=== PATIENT | female | born 1980 | race Caucasian/White ===

== ENCOUNTER 2019-10-22 12:07 | Emergency (ER) | payer SELFPAY ==
[2019-10-22 12:10] VITALS: BP 112/66; PULSE 69; RESP 15; TEMP 36.9; O2SAT 98; BMI 25.3
--- NOTE | 2019-10-22 12:30 | ED.VISSUMM ---
- ER Visit Summary Date of Service: 10/22/19 Chief Complaint: Rash History of Present Illness: The patient is a 39 F who presents with a rash that began yesterday. Patient was recently started on clindamycin for a dental infection 3 to 4 days ago. Patient believes that the rash is due to the clindamycin. Patient denies any difficulty breathing or difficulty swallowing. Patient states the rash is pruritic. Patient states the rash is over the face, neck, chest, and bilateral shoulders. Patient denies any history of allergy to clindamycin in the past. Physical Examination: Vital signs are stable. Patient is afebrile. Patient is in no acute distress. Oral mucosa is pink and moist. Oropharynx is clear. Airway is patent. There is a dental carry noted over the left lower first molar. There is no gingival edema. There is no sublingual edema or erythema. Neck is supple. Trachea is midline. There is no JVD. There is some mild anterior cervical lymphadenopathy. Heart was regular rate and rhythm. Lungs are clear and equal bilaterally. Skin is warm and dry. There is a patchy erythematous papular rash over the face, neck, chest, upper back, and shoulders. There are no vesicles or pustules. There are no petechia noted. There are no mucosal lesions. Emergency Department Course and Treatment: Patient was instructed to stop the clindamycin. I do not feel the patient needs to be on oral prednisone at this time. Patient was instructed to take Benadryl as needed for any itching. Patient was instructed to follow-up with her dentist and primary care physician in 5 to 7 days. Patient understood and was agreeable with the plan. All questions were answered. Disposition: Discharge home Impression: Dermatitis This note was generated with [employer] dictation software. It may contain incorrect words, spelling, and punctuation that were not noted in review of the chart prior to signing ED Disposition - Plan for ED Patient: Disposition: Home or Assisted Living Diagnosis: Dermatitis Instructions: ALLERGIC REACTION, Other (General) Referrals: [facility] Doctor,Out of [Primary Care Provider] - 5-7 Days
[2019-10-22 12:51] VITALS: PULSE 61; RESP 17; O2SAT 97
== END 2019-10-22 12:51 | disposition home or self-care (01) ==
LOC: ED 12:47
PROVIDERS: Emergency Provider Emergency Medicine; PCP Family Medicine
DX: L30.9 Dermatitis, unspecified (principal); F17.210 Nicotine dependence, cigarettes, uncomplicated
CPT/HCPCS: 99282

== ENCOUNTER → 2020-09-06 07:58 | Outpatient (CLI) | payer MEDICAID, SELFPAY ==
--- NOTE | 2020-09-06 08:03 | US_ITS ---
STUDY: ABDOMINAL ULTRASOUND REASON FOR EXAM: Female, 40 years old. ABD PAIN TECHNIQUE: Transabdominal ultrasound was performed with real-time and static valladares scale imaging. TECHNICAL QUALITY: Adequate. COMPARISON: None. FINDINGS: Liver: The liver measures 18 cm. There is increased echogenicity of the liver. The bile ducts are within normal limits. There is hepatic color flow. The direction of portal flow is hepatopetal. There is no demonstrated mass lesion Gallbladder: Normal distended gallbladder. The gallbladder wall measures 2.0 mm. There is a negative sonographic Michaud''s sign. There is no pericholecystic fluid. There are no gallstones. Common Bile Duct (C.B.D.): The common bile duct measures 2.9 mm. Pancreas: There is no demonstrated pancreatic mass or cyst. Spleen: Normal size of the spleen. The spleen measures 10.0 cm. Right Kidney: Normal size of the right kidney. The right kidney measures 11.4 x 4.9 x 3.5 cm. Normal renal cortex. The right cortex measures 1.2 cm. There is no demonstrated renal mass or cyst. There is no right hydronephrosis. Left Kidney: Normal size of the left kidney. The left kidney measures 11.4 x 5.4 x 5.4 cm. Normal renal cortex. The left cortex measures 1.4 cm. There is no demonstrated renal mass or cyst. There is no left hydronephrosis. Shadowing calculi of the left kidney measured up to 10-12 mm. Aorta: Nonaneurysmal I.V.C.: The IVC is patent. There is no ascites. US/Abdomen Complete IMPRESSION: 1. Hepatomegaly with increased echogenicity, which is nonspecific but most commonly associated with hepatic steatosis. 2. Nonobstructing left renal calculi. Electronically Signed: Tyler Serra MD (Brooks) at 12:21 EST , Service support ,
== END ==
PROVIDERS: PCP Family Medicine; Referring Provider Family Medicine; Visit Provider Family Medicine
DX: R10.11 Right upper quadrant pain (principal)
CPT/HCPCS: 76700

== ENCOUNTER 2020-09-15 07:12 | Emergency (ER) | payer MEDICAID, SELFPAY ==
[2020-09-15 07:13] VITALS: BP 108/83; PULSE 67; RESP 16; TEMP 36.2; O2SAT 99; BMI 28.3
--- NOTE | 2020-09-15 07:28 | CT_ITS ---
STUDY: CT ABDOMEN AND PELVIS WITH CONTRAST REASON FOR EXAM: Female, 40 years old. Left abdomen and flank pain, known left stone. Prior x 3. RADIATION DOSAGE (If Supplied By Facility): CTDIvol = ( 16.80 ) mGy, DLP = ( 673.36 ) mGycm TECHNIQUE: Transaxial images were obtained from the dome of the diaphragm to the symphysis pubis with oral contrast. Gastrografin and amp; 100mL Isovue 300 was administered. Sagittal and coronal images were reconstructed. Individualized dose optimization techniques were used for this CT. COMPARISON: None. FINDINGS: Minimal degree of the dependent bibasilar atelectasis. The visualized portions of the heart are within normal limits. Normal liver. Normal gallbladder and extrahepatic biliary system. Normal spleen. Normal pancreas. Normal bilateral adrenal glands. Normal right kidney. A staghorn calculus is seen in the left upper pole calyceal system . The largest component measures 1.5 cm x 0.8 cm. There is evidence of a 1.5 cm x 1.9 cm cyst in the posterior aspect of the upper pole of the left kidney containing a calcification within. There is a small hiatal hernia. Normal small intestine. There are multiple colonic diverticula consistent with diverticulosis. The appendix is visualized and appears normal. Normal abdominal aorta. Normal inferior vena cava. Normal retroperitoneum. Normal urinary bladder. Follicles are seen in the right ovary. Normal abdominal wall. Disc space narrowing in the degeneration at the L5-S1 level. CT/Abdomen/Pelvis WITH Contrast IMPRESSION: Staghorn calculus in the upper pole calyceal system of the left kidney with a small left renal cyst. Sigmoid diverticulosis. Electronically Signed: Fidel Merlos, at 9:34 EST , Service support ,
--- NOTE | 2020-09-15 07:29 | ED.VIS.GEN ---
History of Present Illness Chief Complaint: Abd Pain Informant: Patient Onset: Weeks Context: Gradual Onset Timing: Waxes and wanes Current Severity: Moderate Maximum Severity: Moderate Narrative: Patient presents secondary to left-sided abdominal pain. She reports having left flank pain for the last 2 weeks. She has been taking Aleve and Zofran on a regular basis. Her PCP did get an ultrasound on September 06 which showed hepatic steatosis and a nonobstructing left renal calculi. She states that she is scheduled to get blood work done tomorrow. She presents to the ER today due to continued and worsening pain. No fevers or chills. Nausea but no vomiting. She reports either having diarrhea or constipation. No urinary symptoms. Past Medical History - Allergies and Home Meds Allergies/Adverse Reactions: Allergies clindamycin Allergy (Verified 09/15/20 07:13) Hives morphine Allergy (Verified 09/15/20 07:13) Anaphylaxis Penicillins [PCN] Allergy (Verified 09/15/20 07:13) Anaphylaxis adhesive Adverse Reaction (Verified 09/15/20 07:13) Rash Primary Care Physician: Piyush Robison MD [Primary Care Provider] - Past Medical History: None Surgical History: - - Tubal ligation, left foot surgery Lives: With Family Smoking Status: Current every day smoker Review of Systems General: Denies: Chills, Fever Eyes: Denies: Visual changes - bilaterally ENT: Denies: Bilateral ear pain Cardiovascular: Denies: Chest pain Respiratory: Denies: Dyspnea, Cough Gastrointestinal: Reports: Abdominal pain, Nausea, Diarrhea, Constipation. Denies: Vomiting Genitourinary: Denies: Dysuria Musculoskeletal: Reports: Back pain - Flank. Denies: Extremity Pain Neurological: Denies: Headache Hematologic: Denies: Easy bruising, Easy bleeding Allergy: Denies: Uticaria Physical Exam Vital Signs/Narrative: Vital Signs Temp Pulse Resp BP Pulse Ox 09/15/20 07:13 97.2 F L 67 16 108/83 H 99 Inital Vital Signs reviewed: Yes General: Well nourished, Well developed Head: Normocephalic ENT: Moist mucous membranes Neck: Supple Cardiovascular: Regular rate, Regular rhythm Respiratory: No distress, CTA bilaterally Abdomen: Soft, Nontender, Hypoactive bowel sounds Extremities: Nontender Skin: Normal color Neurological: Alert, Oriented x3 Psychological: Normal affect Diagnostic/Tx/Re-eval Impressions Abdomen/Pelvis CT 09/15/20 07:28 IMPRESSION: Staghorn calculus in the upper pole calyceal system of the left kidney with a small left renal cyst. Sigmoid diverticulosis. Electronically Signed: Fidel Merlso, at 9:34 EST , Service support , 09/15/20 07:28 Abdomen/Pelvis WITH Contrast [CT] Stat Laboratory Results 09/15/20 09/15/20 09/15/20 07:25 07:45 07:45 WBC 6.9 RBC 4.31 Hgb 11.3 L Hct 36.1 L MCV 83.8 MCH 26.2 L MCHC 31.3 L RDW Std Deviation 44.0 H RDW Coeff of Jhonatan 14.3 Plt Count 357 MPV 9.6 Immature Gran % (Auto) 0.100 Neut % (Auto) 58.8 Lymph % (Auto) 28.0 [place] % (Auto) 7.5 Eos % (Auto) 4.9 Baso % (Auto) 0.7 Absolute Neuts (auto) 4.1 Absolute Lymphs (auto) 1.94 Nucleated RBC % 0 Sodium 141 Potassium 4.0 Chloride 112 H Carbon Dioxide 25.0 Anion Gap 4 L BUN 11 Creatinine 0.80 Estim Creat Clear Calc 75.41 Est GFR (MDRD) Af Amer 103 Est GFR (MDRD) Non-Af 85 BUN/Creatinine Ratio 13.7 Glucose 95 Calcium 8.7 Total Bilirubin 0.30 Direct Bilirubin 0.07 AST 12 L ALT 26 Alkaline Phosphatase 58 Total Protein 7.2 Albumin 3.4 Globulin 3.8 Lipase 132 Serum , Qual Urine Color Yellow Urine Clarity Sl. Cloudy Urine pH 7.0 Ur Specific [place] 1.005 Urine Protein Negative Urine Glucose (UA) Normal Urine Ketones Negative Urine Occult Blood 25 H Urine Nitrite Negative Urine Bilirubin Negative Urine Urobilinogen Normal Ur Leukocyte Esterase 25 H Urine RBC 0 SEEN Urine WBC 0-5 SEEN Ur Squamous Epith Cells 5-10 SEEN Urine Bacteria 1+ Urine Mucus 0 SEEN 09/15/20 07:45 WBC RBC Hgb Hct MCV MCH MCHC RDW Std Deviation RDW Coeff of Jhonatan Plt Count MPV Immature Gran % (Auto) Neut % (Auto) Lymph % (Auto) [place] % (Auto) Eos % (Auto) Baso % (Auto) Absolute Neuts (auto) Absolute Lymphs (auto) Nucleated RBC % Sodium Potassium Chloride Carbon Dioxide Anion Gap BUN Creatinine Estim Creat Clear Calc Est GFR (MDRD) Af Amer Est GFR (MDRD) Non-Af BUN/Creatinine Ratio Glucose Calcium Total Bilirubin Direct Bilirubin AST ALT Alkaline Phosphatase Total Protein Albumin Globulin Lipase Serum , Qual NEGATIVE Urine Color Urine Clarity Urine pH Ur Specific [place] Urine Protein Urine Glucose (UA) Urine Ketones Urine Occult Blood Urine Nitrite Urine Bilirubin Urine Urobilinogen Ur Leukocyte Esterase Urine RBC Urine WBC Ur Squamous Epith Cells Urine Bacteria Urine Mucus - Medical Decision Making Patient was given Zofran and 1 tab of [place] here for pain. IV fluids were given. Blood work is reviewed with her and unremarkable. Urinalysis shows a few white cells, however more epithelial cells are noted likely representing contamination. CT scan does reveal diverticulosis but no evidence of diverticulitis. There is a staghorn calculus noted in the left kidney. Patient's pain does seem to radiate along the left flank area. I do wonder if she might be passing small pieces of this calculus. In light of her symptoms ongoing for 2 weeks she will be referred to urology for outpatient follow-up as needed. She will continue her current medication regimen at home. ED Disposition - Plan for ED Patient: Disposition: Home or Assisted Living Diagnosis: Left flank pain Instructions: ED Flank Pain, Uncertain Cause Referrals: Piyush Robison MD [Primary Care Provider] - Magdiel Prieto MD [STAFF PHYSICIAN] - As Needed
[2020-09-15 07:42] LABS: Mucous, Urine 0 SEEN /hpf (<or=2+); Red Blood Cells-Urine 0 SEEN /hpf (0-5)
[2020-09-15 07:46] LABS: Color, Urine Yellow (Yellow); Glucose, Dipstick Normal (Normal); Ketone-Dipstick Negative (Negative); Leukocyte Esterase-Dipstick 25 /ul (Negative); Nitrite-Dipstick Negative (Negative); Occult Blood-Urine 25 /ul (Negative); Protein-Dipstick Negative (Negative); Specific Gravity, Urine 1.005 (1.002-1.030); Urine Bilirubin Dipstick Negative (Negative); Urine Clarity Sl. Cloudy (Clear); Urine Urobilinogen Normal (Normal)
[2020-09-15] MEDS: HYDROcodone Bitartrate/Apap 5/325 Tablet PO (07:50)
[2020-09-15] MEDS: Ondansetron 4 MG/2 ML Vial IV (07:50)
[2020-09-15] MEDS: 0.9% Normal Saline 1,000 ML 150 ML IV (07:50)
[2020-09-15 07:52] LABS: Bacteria 1+ /hpf (None Seen); Squamous Epithelial Cells - UA 5-10 SEEN /hpf (5-10); White Blood Cells 0-5 SEEN /hpf (0-5)
[2020-09-15 07:59] LABS: Absolute Lymphocyte Count 1.94 X10^3/uL (0.83-4.51); Absolute Neutrophil Count 4.1 X10^3/uL (2.0-7.7); Basophil# 0.05 X10^3/uL; Basophil% 0.7 % (0-1); Eosinophil# 0.34 X10^3/uL; Eosinophils% 4.9 % (0-5); Hematocrit 36.1 % (37-47); Hemoglobin 11.3 g/dL (12.0-15.0); Lymphocyte # 1.94 X10^3/ul (4.0); Mean Corp Hgb Conc 31.3 g/dL (32-36); Mean Corpuscular Hgb 26.2 pg (27.0-32.0); Mean Corpuscular Volume 83.8 fL (81-99); Mean Platelet Vol. 9.6 fl (6.2-12.0); Monocyte# 0.52 X10^3/uL; Monocyte% 7.5 % (0-10); NRBC Flagged by Analyzer 0 % (0-5); Neutrophil # 4.07 X10^3/uL (2.7-7.7); Neutrophil % 58.8 % (47-70); Platelet Count 357 K/mm3 (150-450); RBC Distribution Width CV 14.3 % (11.6-14.6); Red Blood Count 4.31 M/mm3 (4.2-5.4); White Blood Count 6.9 K/mm3 (4.4-11.0)
[2020-09-15 08:02] LABS: Internal QC Validated? YES +Cl - CLEAR BKGD; Pregnancy, Serum, hCG Quali. NEGATIVE Negative
[2020-09-15 08:17] LABS: AST(SGOT) 12 U/L (15-37); Alanine Aminotransfer ALT/SGPT 26 U/L (13-56); Albumin, Serum 3.4 g/dL (3.2-5.0); Alkaline Phosphatase 58 U/L (45-117); Anion Gap 4 (5-15); BUN 11 mg/dL (7-18); BUN/Creat Ratio 13.7 RATIO (10-20); Bilirubin, Direct 0.07 mg/dL (0.00-0.30); Calcium,Total 8.7 mg/dL (8.5-10.1); Chloride 112 mmol/L (98-107); EST Glomerular Filtration Rate 85 mL/min (>60); Est Glom Filt Rate - Afr Amer 103 mL/min (>60); Estimated Creatinine Clearance 75.41 ml/min; Globulin 3.8 g/dL (2.2-4.2); Glucose 95 mg/dL (74-106); Lipase 132 U/L (73-393); Protein, Total 7.2 g/dL (6.4-8.2); Sodium Level 141 mmol/L (136-145)
[2020-09-15 09:52] VITALS: PULSE 72; RESP 16; O2SAT 98
== END 2020-09-15 09:53 | disposition home or self-care (01) ==
PROVIDERS: Emergency Provider Emergency Medicine; PCP Family Medicine
DX: R10.9 Unspecified abdominal pain (principal); N20.0 Calculus of kidney; K57.30 Diverticulosis of large intestine without perforation or abscess without bleeding; N28.1 Cyst of kidney, acquired; F17.200 Nicotine dependence, unspecified, uncomplicated; Z88.0 Allergy status to penicillin; Z98.891 History of uterine scar from previous surgery; K76.0 Fatty (change of) liver, not elsewhere classified
CPT/HCPCS: 74177; 80048; 80076; 81001; 83690; 84703; 85025; 96361; 96374; 99284; J7030; Q9967; A4216; J2405

== ENCOUNTER 2020-10-19 07:52 | Emergency (ER) | payer MEDICAID, SELFPAY ==
[2020-10-19 07:53] VITALS: BP 158/65; PULSE 64; RESP 16; TEMP 36.4; O2SAT 99; BMI 27.8
--- NOTE | 2020-10-19 08:13 | ED.VIS.GI ---
History of Present Illness Chief Complaint: Flank Pain Informant: Patient - Abdominal Pain/Flank Pain Timing: Continuous Quality: Aching, Sharp Location: Right Flank - Nausea/Vomiting/Emesis GI Symptom: Nausea Associated Symptoms: Dysuria, Frequency Narrative: Patient is a 40-year-old female presenting with right flank pain. She states is been present for the past 4 to 5 days. She states it is constant. Has become more severe in intensity. She denies any radiation. Patient states she is also urinary frequency and burning with urination. She notes her urine little bit more cloudy than normal. Patient was seen about a month ago for left-sided flank pain. At that time she had a CT with IV contrast that showed diverticulosis and left staghorn calculi. Patient has appointment actually to follow-up with urology tomorrow in [place] (with [facility]). Patient reports associated nausea. She denies any vomiting. She denies any abnormal vaginal bleeding or discharge. Her last menstrual period was a little over 3 weeks ago. Patient denies any change in her bowel habits. No fever, chills or any other systemic symptoms. Has been taking Tylenol at home with no relief of the pain. Past Medical History - Allergies and Home Meds Allergies/Adverse Reactions: Allergies clindamycin Allergy (Verified 10/19/20 07:55) Hives morphine Allergy (Verified 10/19/20 07:55) Anaphylaxis Penicillins [PCN] Allergy (Verified 10/19/20 07:55) Anaphylaxis adhesive Adverse Reaction (Verified 10/19/20 07:55) Rash Primary Care Physician: Piyush Robison MD [Primary Care Provider] - Past Medical History: - - GERD, kidney stones, hypertension Surgical History: - - Tubal ligation, left foot surgery Smoking Status: Never smoker Review of Systems General: Denies: Chills, Fever, Sweats Eyes: Denies: Visual changes - bilaterally, Diplopia ENT: Denies: Rhinorrhea, Sore throat Cardiovascular: Denies: Chest pain, Palpitations Respiratory: Denies: Dyspnea, Cough, Dyspnea on exertion Gastrointestinal: Reports: Abdominal pain - Right flank, Nausea. Denies: Vomiting, Diarrhea, Melena, Hematochezia Genitourinary: Reports: Dysuria, Frequency. Denies: Hematuria Musculoskeletal: Denies: Back pain, Extremity Pain Skin: Denies: Rash, Wounds Neurological: Denies: Headache, Weakness, Numbness Physical Exam Vital Signs/Narrative: Vital Signs Temp Pulse Resp BP Pulse Ox 10/19/20 07:53 97.6 F L 64 16 158/65 H 99 Inital Vital Signs reviewed: Yes General: Well nourished, Well developed, No Acute Distress Head: Normocephalic, Atraumatic Eyes: Perrl, EOMI ENT: Moist mucous membranes, No rhinorrhea Neck: Supple, Nontender Cardiovascular: Regular rate, Regular rhythm, No murmurs Respiratory: No distress, CTA bilaterally, Chest nontender Abdomen: Soft, Nondistended, Normal bowel sounds, Tender - Mild suprapubic tenderness to palpation Back: Nontender, Normal Inspection, CVA tenderness - Right flank Extremities: Nontender, No edema Skin: Normal color, No rash Neurological: Alert, Oriented x3, Cranial nerves II-XII grossly intact, Normal Strength, Normal Sensation Psychological: Normal affect, Normal Mood Diagnostic/Tx/Re-eval Laboratory Data 10/19/20 10/19/20 10/19/20 08:00 08:00 08:15 WBC 6.9 RBC 4.63 Hgb 12.0 Hct 37.5 MCV 81.0 MCH 25.9 L MCHC 32.0 RDW Std Deviation 43.1 RDW Coeff of Jhonatan 14.6 Plt Count 358 MPV 10.0 Immature Gran % (Auto) 0.300 Neut % (Auto) 53.7 Lymph % (Auto) 30.6 [place] % (Auto) 7.7 Eos % (Auto) 7.0 H Baso % (Auto) 0.7 Absolute Neuts (auto) 3.7 Absolute Lymphs (auto) 2.10 Nucleated RBC % 0 Sodium 137 Potassium 3.7 Chloride 107 Carbon Dioxide 25.0 Anion Gap 5 BUN 15 Creatinine 0.89 Estim Creat Clear Calc 67.79 Est GFR (MDRD) Af Amer 91 Est GFR (MDRD) Non-Af 75 BUN/Creatinine Ratio 16.8 Glucose 90 Calcium 8.8 Total Bilirubin 0.30 AST 15 ALT 21 Alkaline Phosphatase 54 Total Protein 7.9 Albumin 3.8 Globulin 4.1 Albumin/Globulin Ratio 0.9 Urine Color Urine Clarity Urine pH Ur Specific [place] Urine Protein Urine Glucose (UA) Urine Ketones Urine Occult Blood Urine Nitrite Urine Bilirubin Urine Urobilinogen Ur Leukocyte Esterase Urine RBC Urine WBC Ur Squamous Epith Cells Urine Bacteria Urine Mucus Urine Test Negative 10/19/20 08:15 WBC RBC Hgb Hct MCV MCH MCHC RDW Std Deviation RDW Coeff of Jhonatan Plt Count MPV Immature Gran % (Auto) Neut % (Auto) Lymph % (Auto) [place] % (Auto) Eos % (Auto) Baso % (Auto) Absolute Neuts (auto) Absolute Lymphs (auto) Nucleated RBC % Sodium Potassium Chloride Carbon Dioxide Anion Gap BUN Creatinine Estim Creat Clear Calc Est GFR (MDRD) Af Amer Est GFR (MDRD) Non-Af BUN/Creatinine Ratio Glucose Calcium Total Bilirubin AST ALT Alkaline Phosphatase Total Protein Albumin Globulin Albumin/Globulin Ratio Urine Color Yellow Urine Clarity Sl. Cloudy Urine pH 6.5 Ur Specific [place] 1.010 Urine Protein Negative Urine Glucose (UA) Normal Urine Ketones Negative Urine Occult Blood Negative Urine Nitrite Positive H Urine Bilirubin Negative Urine Urobilinogen Normal Ur Leukocyte Esterase 500 H Urine RBC 0 SEEN Urine WBC 25-50 SEEN Ur Squamous Epith Cells 0-5 SEEN Urine Bacteria 1+ Urine Mucus 0 SEEN Urine Test - Medical Decision Making Patient is evaluated for 4 to 5 days of right-sided flank pain. She also has urinary symptoms. Physical exam shows a mild CVA tenderness but she is otherwise well-appearing. Patient is on her phone this time in the ER. She is given morphine, fluids and Zofran for symptom control in the ER. Urinalysis consistent with UTI. Given her flank pain should be can treated as pyelonephritis. CT from a month ago shows a stone on the left side which is not where her symptoms are today. Her white blood cell counts and creatinine are normal. Patient is also given IV Toradol. She be started on Keflex. She does have a allergy to penicillin but it is rash so I think she will tolerate the Keflex. She has appointment to follow-up with her urologist tomorrow. Urine culture is sent. Patient is counseled on signs and symptoms requiring return to the emergency room. Patient verbalizes agreement and understand this plan. Patient discharged home in stable and improved condition. ED Disposition - Plan for ED Patient: Disposition: Home or Assisted Living Diagnosis: Pyelonephritis Instructions: ED Pyelonephritis, Female (Adult) Prescriptions: Cephalexin [Keflex] 500 mg PO Q12 #14 cap Transmission Status: Pending to [facility] Phenazopyridine HCl [Pyridium] 200 mg PO TID #6 tab [facility]: [facility] Ondansetron [Zofran Odt] 4 mg PO Q8H PRN PRN #10 tab PRN Reason: Nausea [facility] Referrals: Piyush Robison MD [Primary Care Provider] - Additional Instructions: Please follow-up with your urologist tomorrow
[2020-10-19 08:17] LABS: Absolute Neutrophil Count 3.7 X10^3/uL (2.0-7.7); Basophil# 0.05 X10^3/uL; Basophil% 0.7 % (0-1); Eosinophil# 0.48 X10^3/uL; Hematocrit 37.5 % (37-47); Lymphocyte % 30.6 % (19-41); Mean Corpuscular Hgb 25.9 pg (27.0-32.0); Monocyte# 0.53 X10^3/uL; Monocyte% 7.7 % (0-10); NRBC Flagged by Analyzer 0 % (0-5); Neutrophil # 3.69 X10^3/uL (2.7-7.7); Neutrophil % 53.7 % (47-70); Platelet Count 358 K/mm3 (150-450); RBC Distribution Width CV 14.6 % (11.6-14.6); RBC Distribution Width SD 43.1 fl (35.1-43.9); Red Blood Count 4.63 M/mm3 (4.2-5.4); White Blood Count 6.9 K/mm3 (4.4-11.0)
[2020-10-19 08:24] LABS: Mucous, Urine 0 SEEN /hpf (<or=2+); Red Blood Cells-Urine 0 SEEN /hpf (0-5)
[2020-10-19 08:25] LABS: Internal QC Validated? YES +Cl - CLEAR BKGD; Pregnancy, Urine Negative Negative
[2020-10-19] MEDS: 0.9% Normal Saline 1,000 ML 1000 ML IV (08:27)
[2020-10-19] MEDS: HYDROmorphone 1 MG/ML Syringe 0.5 MG IV (08:27)
[2020-10-19] MEDS: Ondansetron 4 MG/2 ML Vial IV (08:28)
[2020-10-19 08:31] LABS: Color, Urine Yellow (Yellow); Glucose, Dipstick Normal (Normal); Ketone-Dipstick Negative (Negative); Leukocyte Esterase-Dipstick 500 /ul (Negative); Nitrite-Dipstick Positive (Negative); Occult Blood-Urine Negative /ul (Negative); Protein-Dipstick Negative (Negative); Urine Bilirubin Dipstick Negative (Negative); Urine Clarity Sl. Cloudy (Clear); Urine Urobilinogen Normal (Normal); Urine pH 6.5 (5.0 - 8.0)
[2020-10-19 08:34] LABS: ALB/GLOB Ratio 0.9 RATIO (0.9-2.4); AST(SGOT) 15 U/L (15-37); Alanine Aminotransfer ALT/SGPT 21 U/L (13-56); Albumin, Serum 3.8 g/dL (3.2-5.0); Alkaline Phosphatase 54 U/L (45-117); Anion Gap 5 (5-15); BUN 15 mg/dL (7-18); BUN/Creat Ratio 16.8 RATIO (10-20); Calcium,Total 8.8 mg/dL (8.5-10.1); Chloride 107 mmol/L (98-107); Creatinine, Serum 0.89 mg/dL (0.55-1.02); EST Glomerular Filtration Rate 75 mL/min (>60); Est Glom Filt Rate - Afr Amer 91 mL/min (>60); Estimated Creatinine Clearance 67.79 ml/min; Globulin 4.1 g/dL (2.2-4.2); Glucose 90 mg/dL (74-106); Potassium 3.7 mmol/L (3.5-5.1); Protein, Total 7.9 g/dL (6.4-8.2); Sodium Level 137 mmol/L (136-145)
[2020-10-19 08:38] LABS: Bacteria 1+ /hpf (None Seen); Squamous Epithelial Cells - UA 0-5 SEEN /hpf (5-10); White Blood Cells 25-50 SEEN /hpf (0-5)
[2020-10-19] MEDS: Cephalexin 250 MG Capsule 500 MG PO (09:00)
[2020-10-19] MEDS: Ketorolac 15 MG/ML Vial IV (09:00)
== END 2020-10-19 09:17 | disposition home or self-care (01) ==
PROVIDERS: Emergency Provider Emergency Medicine; PCP Family Medicine
DX: N12 Tubulo-interstitial nephritis, not specified as acute or chronic (principal); I10 Essential (primary) hypertension; K21.9 Gastro-esophageal reflux disease without esophagitis; Z88.0 Allergy status to penicillin; Z87.442 Personal history of urinary calculi
CPT/HCPCS: 80053; 81001; 81025; 85025; 87086; 87088; 87186; 96361; 96374; 96375; 99284; J7030; A4216; J2405

== ENCOUNTER 2021-03-06 07:22 | Emergency (ER) | payer MEDICAID, SELFPAY ==
[2021-03-06 07:24] VITALS: BP 118/80; PULSE 86; RESP 16; TEMP 36.8; O2SAT 100; BMI 29.7
--- NOTE | 2021-03-06 07:40 | EKG12_ITS ---
Test Reason : PALPILTATIONS Blood Pressure : / mmHG Vent. Rate : 078 BPM Atrial Rate : 078 BPM P-R Int : 132 ms QRS Dur : 082 ms QT Int : 384 ms P-R-T Axes : 066 049 033 degrees QTc Int : 437 ms Normal sinus rhythm with sinus arrhythmia Nonspecific ST abnormality Abnormal ECG Confirmed by TIFFANIE BROOKS, CHAD ([id number]), commissioning editor RILEY COLEMAN ([id number]) on 03/07/2021 10:39:50 AM Referred By: MR Confirmed By:CHAD MORENO MD
--- NOTE | 2021-03-06 07:54 | RAD_ITS ---
HISTORY: chest pain. TECHNIQUE: XR Chest 2 Views. # of images incl. paperwork: 2. COMPARISON: None. FINDINGS: CARDIOMEDIASTINAL STRUCTURES: Cardiac silhouette not enlarged. Mediastinal contour unremarkable. LUNGS: Radiographically clear. PLEURA: No pleural effusion or pneumothorax. OSSEOUS STRUCTURES: Unremarkable. UPPER ABDOMEN: Staghorn-type left renal calculi. RAD/Chest PA and Lateral IMPRESSION: No radiographic evidence of acute cardiopulmonary disease. at [id number] Reported and signed by: Jessika Pollock MD Electronically Signed: Jessika Pollock MD at 8:04 EDT Tel , Service support ,
[2021-03-06 08:01] LABS: Absolute Lymphocyte Count 1.53 X10^3/uL (0.83-4.51); Absolute Neutrophil Count 3.3 X10^3/uL (2.0-7.7); Basophil# 0.04 X10^3/uL; Basophil% 0.7 % (0-1); Eosinophil# 0.36 X10^3/uL; Eosinophils% 6.4 % (0-5); Hematocrit 37.1 % (37-47); Hemoglobin 11.5 g/dL (12.0-15.0); Lymphocyte # 1.53 X10^3/ul (0.83-4.51); Lymphocyte % 27.1 % (19-41); Mean Corpuscular Hgb 23.7 pg (27.0-32.0); Mean Corpuscular Volume 76.5 fL (81-99); Mean Platelet Vol. 9.7 fl (6.2-12.0); Monocyte# 0.43 X10^3/uL; Monocyte% 7.6 % (0-10); NRBC Flagged by Analyzer 0 % (0-5); Neutrophil # 3.27 X10^3/uL (2.7-7.7); Platelet Count 370 K/mm3 (150-450); RBC Distribution Width CV 15.6 % (11.6-14.6); RBC Distribution Width SD 42.3 fl (35.1-43.9); Red Blood Count 4.85 M/mm3 (4.2-5.4); White Blood Count 5.6 K/mm3 (4.4-11.0)
[2021-03-06 08:14] LABS: Anion Gap 7 (5-15); BUN 15 mg/dL (7-18); BUN/Creat Ratio 15.5 RATIO (10-20); Calcium,Total 8.5 mg/dL (8.5-10.1); Chloride 111 mmol/L (98-107); Creatinine, Serum 0.97 mg/dL (0.55-1.02); EST Glomerular Filtration Rate 68 mL/min (>60); Est Glom Filt Rate - Afr Amer 82 mL/min (>60); Estimated Creatinine Clearance 62.19 ml/min; Glucose 91 mg/dL (74-106); Magnesium 2.2 mg/dL (1.6-2.6); Potassium 3.3 mmol/L (3.5-5.1); Sodium Level 139 mmol/L (136-145); Thyroid Stim Hormone (TSH) 1.55 uIU/mL (0.358-3.74); Troponin-I HS < 3.0 pg/mL (3.0-53.7)
--- NOTE | 2021-03-06 08:21 | EDS_ITS ---
HPI History of Present Illness Chief Complaint: Palpitations Narrative Narrative: Patient presenting for evaluation secondary to palpitations. Patient states that she has had a history of this in the past, she did have a 1 month Holter monitor that did not show any malignant arrhythmias. Patient states that over the course of the last couple of days she has been noticing palpitations. She states that her smart watch will tell her that her heart rate is getting upwards of 115 and associated with feelings of palpitations as well as chest pain. It is associated with some worsening in the morning in the late evening. Is not associated with exertion. Patient states that it happened today while she was simply riding in the car. Patient states that she quit smoking in October, she decreased her caffeine intake and is only drinking 1 cup of coffee a day. She denies any illicit substance use or any stimulant use or any [id number] cough or cold medicine. Patient does state that she has had somewhat of a weight gain over the last 12 months, but denies any unintended w eight loss changes in appetite heat or cold intolerance. No increases or decreases in urination. No history of DVT or PE, recent travel or surgery, or exogenous hormone use. Review of systems otherwise negative. Patient does report that she has a strong cardiovascular history in her family. [facility] Medical History Chest pain Home Medications Topamax PRN PRN 09/15/20 [History Last Taken Unknown] ondansetron HCl 4 mg PO TID PRN PRN 09/15/20 [History Last Taken Unknown] pantoprazole 40 mg PO DAILY 09/15/20 [History Last Taken Unknown] propranolol 60 mg PO DAILY 09/15/20 [History Last Taken Unknown] cephalexin 500 mg PO Q12 #14 cap 10/19/20 [Rx Last Taken Unknown] ondansetron 4 mg PO Q8H PRN PRN #10 tab 10/19/20 [Rx Last Taken Unknown] phenazopyridine 200 mg PO TID #6 tab 10/19/20 [Rx Last Taken Unknown] potassium chloride 20 meq PO BID #10 tab 03/06/21 [Rx Last Taken Unknown] Allergy/AdvReac Type Severity Reaction Status Date / Time clindamycin Allergy Hives Verified 03/06/21 07:23 morphine Allergy Anaphylaxis Verified 03/06/21 07:23 Penicillins [PCN] Allergy Anaphylaxis Verified 03/06/21 07:23 adhesive AdvReac Rash Verified 03/06/21 07:23 Social History Smoking Status: Former smoker ROS ROS ED Constitutional Constitutional ED: Denies fever(s) Eyes Eyes: Denies change in vision ENT ENT ED: Denies rhinorrhea or sore throat Cardiovascular Cardiovascular: Reports as per HPI, chest pain and palpitations Respiratory/Chest Respiratory/Chest: Denies cough, dyspnea or dyspnea on exertion Gastrointestinal Gastrointestinal: Denies abdominal pain, nausea or vomiting Genitourinary Genitourinary ED: Denies dysuria Musculoskeletal Musculoskeletal: Denies myalgias or neck pain Integumentary Denies rash Neurologic Neurologic: Denies headache(s), paresthesias or weakness Psychiatric Psychiatric: Denies depression Endocrine Endocrinology: Denies polydipsia or polyuria Hematologic/Lymphatic Hematologic/Lymphatic: Denies easy bleeding or easy bruising Allergic/Immunologic Allergic/Immunologic ED: Denies urticaria EXAM Physical Exam Const Vital Signs: 03/06/21 07:24 03/06/21 07:41 Temperature 98.2 F Temperature Source Temporal Pulse Rate 86 Respiratory Rate 16 Respiratory Effort Normal Non-Labored Respiratory Pattern Normal Blood Pressure 118/80 Blood Pressure Mean 92 Pulse Ox 100 Oxygen Delivery Method Room Air Positive well nourished and well developed General Appearance ED: well developed and NAD HEENT Reports moist mucous membranes HEENT Narrative: Thyroid is normal to palpation normocephalic and atraumatic Eyes EOMs intact bilaterally Neck no lymphadenopathy, supple and no JVD Chest Wall inspection of chest normal and palpation of chest normal Chest Narrative: No evidence of vesicular rash Resp normal respiratory effort and clear to auscultation bilaterally Auscultation: Negative for rales, rhonchi or wheezes Cardio regular rate, regular rhythm, S1 normal heart sound, S2 normal heart sound and no murmurs Peripheral Pulses: radial pulses present and posterior tibial pulses present GI normal to inspection, nondistended, normoactive bowel sounds, soft to palpation and non-tender Extremity normal to inspection Extremity Narrative: Calves are supple no palpable cord General Extremety ED: Negative for edema or tenderness General Extremity: Negative for edema Neuro oriented x3 and no sensory deficits noted Sensorium / Orientation: awake and alert Motor Exam: strength abnormal Psych mental status grossly normal Skin no rashes or lesions noted Heart Score History: Slightly/Non-Suspicious ECG: Nonspecific Repolarization Age: </= 45 years Risk Factors: 1 or 2 Risk Factors Troponin: </= Normal Limit Score: 2 MDM MDM MDM Narrative Medical decision making narrative: Patient presented secondary to palpitations. EKG demonstrated some sinus arrhythmia, with some nonspecific ST changes no evidence of pathologic ST elevation. Chest x-ray by my personal review as well as radiology is negative. Lab work including high-sensitivity troponin magnesium TSH was remarkable only for mild hypokalemia at 3.3. Patient's potassium will be replaced as an outpatient. Patient is capital PE RC negative. Her heart score is low risk, 2, I do not think that she requires further work- up or admission. Patient was informed that she will be started on potassium replacement, and she needs to follow-up with primary care. She was given reassurance. Patient was discharged in stable condition. Lab Data Labs: Laboratory Results - last 24 hr 03/06/21 03/06/21 07:39 07:39 WBC 5.6 RBC 4.85 Hgb 11.5 L Hct 37.1 MCV 76.5 L MCH 23.7 L MCHC 31.0 L RDW Std Deviation 42.3 RDW Coeff of Jhonatan 15.6 H Plt Count 370 MPV 9.7 Immature Gran % (Auto) 0.200 Neut % (Auto) 58.0 Lymph % (Auto) 27.1 [place] % (Auto) 7.6 Eos % (Auto) 6.4 H Baso % (Auto) 0.7 Absolute Neuts (auto) 3.3 Absolute Lymphs (auto) 1.53 Nucleated RBC % 0 Sodium 139 Potassium 3.3 L Chloride 111 H Carbon Dioxide 21.0 Anion Gap 7 BUN 15 Creatinine 0.97 Estim Creat Clear Calc 62.19 Est GFR (MDRD) Af Amer 82 Est GFR (MDRD) Non-Af 68 BUN/Creatinine Ratio 15.5 Glucose 91 Calcium 8.5 Magnesium 2.2 Troponin I High Sens < 3.0 L TSH 1.55 Radiography Chest X-Ray - ED: 2 View, Read by ED Physician and Normal Diagnostic Testing: Radiology Impression Chest X-Ray 03/06/21 07:54 IMPRESSION: No radiographic evidence of acute cardiopulmonary disease. at 0806 Reported and signed by: Jessika Pollock MD Electronically Signed: Jessika Pollock MD at 8:04 EDT Tel , Service support , EKG Initial EKG: Attestation: I personally reviewed and interpreted this EKG as follows: (Sinus arrhythmia with a rate of 78. Nonspecific ST changes, no evidence of ST elevation. Normal LA and QTc intervals. No evidence of WPW or Brugada morphology.) Discharge Plan Triage Chief Complaint: Palpitations ED Provider: Mateo Clancy Dx/Rx/DC Orders Clinical Impression: Heart palpitations, Hypokalemia Instructions: ED Palpitations Prescriptions: New potassium chloride 20 mEq tablet extended release 20 meq PO BID Qty: 10 RF: 0 No Action ondansetron HCl 4 MG tablet 4 mg PO TID PRN PRN (Reason: Nausea) RF: 0 propranolol 60 MG capsule 60 mg PO DAILY RF: 0 pantoprazole 40 MG tablet 40 mg PO DAILY RF: 0 Topamax PRN PRN (Reason: Headache) RF: 0 cephalexin 500 MG capsule 500 mg PO Q12 Qty: 14 RF: 0 phenazopyridine 200 MG tablet 200 mg PO TID Qty: 6 RF: 0 ondansetron 4 MG tablet 4 mg PO Q8H PRN PRN (Reason: Nausea) Qty: 10 RF: 0 Primary Care Provider: Piyush Robison Referrals: Piyush Robison MD [Primary Care Provider] - 1-2 Weeks Disposition Disposition: Home, Self Care
[2021-03-06 08:35] VITALS: BP 94/58; PULSE 71; RESP 16; O2SAT 97
== END 2021-03-06 08:35 | disposition home or self-care (01) ==
PROVIDERS: Emergency Provider Emergency Medicine; PCP Family Medicine
DX: R00.2 Palpitations (principal); E87.6 Hypokalemia; Z87.891 Personal history of nicotine dependence; Z79.899 Other long term (current) drug therapy
CPT/HCPCS: 71046; 80048; 83735; 84443; 84484; 85025; 93005; 99285; A4216

== ENCOUNTER 2021-07-04 13:49 | Emergency (ER) | payer MEDICAID, SELFPAY ==
[2021-07-04] VITALS (7 sets, daily range): BP systolic 109–152; BP diastolic 51–89; PULSE 74–124; RESP 16–22; TEMP 36.3; O2SAT 99–100; BMI 29.2
--- NOTE | 2021-07-04 14:04 | EKG12_ITS ---
Test Reason : SOB Blood Pressure : / mmHG Vent. Rate : 088 BPM Atrial Rate : 088 BPM P-R Int : 132 ms QRS Dur : 078 ms QT Int : 392 ms P-R-T Axes : 061 038 026 degrees QTc Int : 474 ms Sinus rhythm with marked sinus arrhythmia Nonspecific ST abnormality Abnormal ECG Confirmed by THERON BROOKS, CHERYL ([id number]), image editor RILEY COLEMAN ([id number]) on 07/06/2021 9:29:16 AM Referred By: JAMEY Confirmed By:CHERYL CRUMP MD
--- NOTE | 2021-07-04 14:06 | ED.VIS.DYS ---
HPI History of Present Illness Chief Complaint: Shortness of Breath Informant: patient Onset/Context/Timing Onset: Weeks (1) Context: gradual Timing: Continuous Quality: Positive for Dyspnea on exertion and Wheezing Current Severity: Moderate Maximum Severity: Moderate Worsened by: Exertion and Coughing Relieved by: Rest Associated Symptoms cough Chest Pain: Positive for Continuous and - (heaviness, along with bilateral axillary chest wall pain w/ moving, coughing) Narrative Narrative: Patient states she has been ill for about a week with cough, myalgias, malaise without fevers and chills, migraines occasionally which she has a history of, and chest discomfort with wheezing and shortness of breath. She is not an asthmatic. No known history of Covid, nor has she been vaccinated. No contact with anyone that she knows of with Covid recently. No recent travel out of the area, no history of clots or hospitalization/surgery recently. PE Risk Factors: Negative for Cancer, OCP + Smoking + > 35, Prior DVT or PE, Recent immobilization, Recent surgery and Recent travel [facility] Medical History (Updated 07/04/21 @ 17:[address] Rick Chen MD) Anxiety HNP (herniated nucleus pulposus), cervical Migraines Home Medications Topamax PRN PRN 09/15/20 [History Last Taken Unknown] pantoprazole 40 mg PO DAILY 09/15/20 [History Last Taken Unknown] buspirone 7.5 mg tablet 7.5 mg PO BID 06/18/21 [History Last Taken Unknown] gabapentin 100 mg capsule 100 mg PO BID 06/18/21 [History Last Taken Unknown] apixaban [Eliquis DVT-PE Treat 30D Start] See Rx Instructions .ROUTE .COMPLEX #74 tab 07/04/21 [Rx Last Taken Unknown] Allergy/AdvReac Type Severity Reaction Status Date / Time cat dander Allergy Sneezing, Verified 07/04/21 13:52 itchy eyes clindamycin Allergy Hives Verified 07/04/21 13:52 morphine Allergy Anaphylaxis Verified 07/04/21 13:52 Penicillins [PCN] Allergy Anaphylaxis Verified 07/04/21 13:52 Rabbit Allergy Sneezing, Verified 07/04/21 13:52 itchy eyes adhesive AdvReac Rash Verified 07/04/21 13:52 Surgical History H/O breast biopsy History of surgery Social History household members: spouse, children and other details: [id number] housing: house Smoking Status: Former smoker alcohol intake: current alcohol intake frequency: a few times a week what type of physical activity do you participate in: walking and other details: hike do you feel safe at home: Yes ROS ROS ED Constitutional Constitutional ED: Reports body ache(s), headache(s) and malaise; Denies chills or fever(s) Eyes Eyes: Denies change in vision or diplopia ENT ENT ED: Denies rhinorrhea or sore throat Cardiovascular Cardiovascular: Reports chest pain; Denies palpitations Respiratory/Chest Respiratory/Chest: Reports cough, dyspnea and wheezing Gastrointestinal Gastrointestinal: Denies abdominal pain, diarrhea, nausea or vomiting Genitourinary Genitourinary ED: Denies dysuria or hematuria Musculoskeletal Musculoskeletal: Denies back pain or neck pain Integumentary Denies abscess or rash Neurologic Neurologic: Reports headache(s); Denies paresthesias or weakness Psychiatric Psychiatric: Denies anxiety or suicidal thoughts EXAM Physical Exam Const Vital Signs: 07/04/21 13:50 07/04/21 14:03 07/04/21 14:36 Temperature 97.4 F L 97.4 F L Temperature Source Temporal Temporal Pulse Rate 124 H 124 H Respiratory Rate 22 H 22 H Respiratory Effort Short of Breath Respiratory Depth Normal Respiratory Pattern Normal Blood Pressure 152/89 H 152/89 H Blood Pressure Mean 110 110 Pulse Ox 100 100 Oxygen Delivery Method Room Air Room Air Room Air 07/04/21 15:00 07/04/21 16:00 07/04/21 17:00 Temperature 97.4 F L Temperature Source Temporal Pulse Rate 84 82 74 Respiratory Rate 20 H 18 18 Respiratory Effort Respiratory Depth Respiratory Pattern Blood Pressure 124/51 H 109/62 Blood Pressure Mean 75 77 Pulse Ox 100 100 100 Oxygen Delivery Method Room Air Room Air Room Air Positive well nourished and well developed General Appearance ED: well developed and NAD HEENT Reports moist mucous membranes normocephalic and atraumatic Eyes PERRL and EOMs intact bilaterally Neck full ROM, no lymphadenopathy and supple Resp normal respiratory effort and clear to auscultation bilaterally Cardio regular rate, regular rhythm and no murmurs Rate: tachycardic GI non-tender and non-distended Auscultation: normoactive bowel sounds Palpation: soft Back/Spine no CVA tenderness General Back: other FROM Extremity normal to inspection General Extremety ED: Negative for edema, pulses abnormal or tenderness General Extremity: Negative for edema or pulses abnormal Neuro oriented x3, CN's II-XII intact bilaterally and no sensory deficits noted Sensorium / Orientation: awake and alert Motor Exam: strength 5/5 throughout Skin no rashes or lesions noted and no wounds MDM MDM MDM Narrative Medical decision making narrative: Work-up shows a significantly elevated D-dimer and a negative Covid swab. She was sent for CTA of the chest after her normal chest x-ray, and it shows proximal right pulmonary emboli. Her troponin is negative, her resting heart feed is in the 80s, and her blood pressure has ranged from 124-152 systolic. She is satting well on room air, and has no clinical or ancillary/radiographic signs of right heart strain. Her Pasi score is 0. Therefore I think she is stable for discharge home and outpatient treatment and follow-up with Eliquis, she was given an initial dose of 1.5 mg/kg of Lovenox here to bridge her so that she can start Eliquis in the morning. Discussed all this with her she is comfortable with that plan. We will also send an outpatient Covid PCR since she may have presented too late to test with a rapid and could be a false negative. Simplified PESI (Pulmonary Embolism Severity Index) from [employer] on 07/04/2021 All calculations should be rechecked by clinician prior to use RESULT SUMMARY: Low risk 1.1% risk of in the ?Low? risk group (0 points), with 1.5% having recurrent thromboembolism or non-fatal bleeding INPUTS: Age, years ?> 0 = ?82 History of cancer ?> 0 = No History of chronic cardiopulmonary disease ?> 0 = No Heart rate, bpm ?> 0 = <110 Systolic BP, mmHg ?> 0 = ?100 O? saturation ?> 0 = ?90% Lab Data Attestation: I reviewed the patient's lab results. Labs: Laboratory Results - last 24 hr 07/04/21 07/04/21 07/04/21 14:32 14:32 14:32 WBC 7.8 RBC 4.67 Hgb 10.4 L Hct 34.5 L MCV 73.9 L MCH 22.3 L MCHC 30.1 L RDW Std Deviation 43.3 RDW Coeff of Jhonatan 16.3 H Plt Count 337 MPV 9.5 Immature Gran % (Auto) 0.300 Neut % (Auto) 63.5 Lymph % (Auto) 25.8 [place] % (Auto) 5.6 Eos % (Auto) 4.2 Baso % (Auto) 0.6 Absolute Neuts (auto) 4.9 Absolute Lymphs (auto) 2.01 Nucleated RBC % 0 D-Dimer Quant (PE/DVT) 5.40 H* Sodium 139 Potassium 3.5 Chloride 112 H Carbon Dioxide 20.0 L Anion Gap 7 BUN 10 Creatinine 0.98 Estim Creat Clear Calc 61.56 Est GFR (MDRD) Af Amer 81 Est GFR (MDRD) Non-Af 67 BUN/Creatinine Ratio 10.2 Glucose 91 Calcium 9.0 Troponin I High Sens < 3 L COVID-19 ([facility]) 07/04/21 07/04/21 16:07 16:07 WBC RBC Hgb Hct MCV MCH MCHC RDW Std Deviation RDW Coeff of Jhonatan Plt Count MPV Immature Gran % (Auto) Neut % (Auto) Lymph % (Auto) [place] % (Auto) Eos % (Auto) Baso % (Auto) Absolute Neuts (auto) Absolute Lymphs (auto) Nucleated RBC % D-Dimer Quant (PE/DVT) Sodium Potassium Chloride Carbon Dioxide Anion Gap BUN Creatinine Estim Creat Clear Calc Est GFR (MDRD) Af Amer Est GFR (MDRD) Non-Af BUN/Creatinine Ratio Glucose Calcium Troponin I High Sens COVID-19 ([facility]) Cancelled Negative Radiography Diagnostic Testing: Clinical Impression(s) from Imaging Studies Chest X-Ray 07/04/21 14:40 IMPRESSION: Normal x-ray examination of the chest. Electronically Signed: Fidel Merlos MD at 15:10 EDT , Service support , Chest CTA 07/04/21 15:06 IMPRESSION: 1. Acute bilateral pulmonary embolism without evidence of right heart strain. 2. Peripheral left basilar airspace opacification which may represent small pulmonary infarct. 3. Left renal staghorn calculus. Individualized dose optimization techniques were used for this CT. at 1654 Reported and signed by: Darrian Dominguez MD Electronically Signed: Darrian Dominguez MD at 16:53 EDT Tel , Service support , ADDENDUM: 07/04/21 1702 IMPRESSION: 1. Acute bilateral pulmonary embolism without evidence of right heart strain. 2. Peripheral left basilar airspace opacification which may represent small pulmonary infarct. 3. Left renal staghorn calculus. Individualized dose optimization techniques were used for this CT. at 1654 Reported and signed by: Darrian Dominguez MD N.B. : The above Results were Read Back by Darrian Dominguez MD to Rick Chen MD, and understanding confirmed on 07/04/2021 16:55:35 (ET). Electronically Signed: Darrian Dominguez MD at 16:53 EDT Tel , Service support , EKG Initial EKG: Attestation: I personally reviewed and interpreted this EKG as follows: Interpretation: No Acute Injury Pattern and Sinus Arrythmia Discharge Plan Triage Chief Complaint: Shortness of Breath ED Provider: Rick Chen Dx/Rx/DC Orders Clinical Impression: Pulmonary emboli, Acute cough, Suspected 2019-nCoV infection Instructions: Pulmonary Embolism, Coronavirus Disease 2019 (COVID-19): Caring for Yourself or Others Prescriptions: New Eliquis DVT-PE Treat 30D Start 5 mg (74 tabs) tablets,dose pack See Rx Instructions .ROUTE .COMPLEX Qty: 74 RF: 0 No Action buspirone 7.5 mg tablet 7.5 mg PO BID RF: 0 gabapentin 100 mg capsule 100 mg PO BID RF: 0 pantoprazole 40 MG tablet 40 mg PO DAILY RF: 0 Topamax PRN PRN (Reason: Headache) RF: 0 Primary Care Provider: Piyush Robison Referrals: Piyush Robison MD [Primary Care Provider] - 1 Week if not improving Disposition Disposition: Home, Self Care
[2021-07-04] MEDS: 0.9% Normal Saline 1,000 ML 150 ML IV (14:33)
[2021-07-04 14:39] LABS: Absolute Lymphocyte Count 2.01 X10^3/uL (0.83-4.51); Absolute Neutrophil Count 4.9 X10^3/uL (2.0-7.7); Basophil# 0.05 X10^3/uL; Basophil% 0.6 % (0-1); Eosinophil# 0.33 X10^3/uL; Eosinophils% 4.2 % (0-5); Hematocrit 34.5 % (37-47); Hemoglobin 10.4 g/dL (12.0-15.0); Lymphocyte # 2.01 X10^3/ul (0.83-4.51); Lymphocyte % 25.8 % (19-41); Mean Corp Hgb Conc 30.1 g/dL (32-36); Mean Corpuscular Hgb 22.3 pg (27.0-32.0); Mean Corpuscular Volume 73.9 fL (81-99); Mean Platelet Vol. 9.5 fl (6.2-12.0); Monocyte# 0.44 X10^3/uL; Monocyte% 5.6 % (0-10); NRBC Flagged by Analyzer 0 % (0-5); Neutrophil # 4.94 X10^3/uL (2.7-7.7); Neutrophil % 63.5 % (47-70); Platelet Count 337 K/mm3 (150-450); RBC Distribution Width CV 16.3 % (11.6-14.6); RBC Distribution Width SD 43.3 fl (35.1-43.9); Red Blood Count 4.67 M/mm3 (4.2-5.4); White Blood Count 7.8 K/mm3 (4.4-11.0)
--- NOTE | 2021-07-04 14:40 | RAD_ITS ---
STUDY: X-RAY CHEST REASON FOR EXAM: Female, 40 years old. Cough sob TECHNIQUE: Single AP portable view of the chest. COMPARISON: Comparison is made with prior study dated 03/06/2021. FINDINGS: EKG electrodes are seen. The lungs are clear and expanded. There is no demonstrated pleural abnormality. Normal size heart. Normal mediastinum and rakan. Normal visualized pulmonary arteries. Normal visualized aortic arch and descending thoracic aorta. Normal visualized thoracic spine. Normal visualized ribs, clavicles, and shoulders. There is no demonstrated abnormality of the visualized soft tissue structures of the upper abdomen. RAD/Chest 1 View (Portable) IMPRESSION: Normal x-ray examination of the chest. Electronically Signed: Fidel Merlos MD at 15:10 EDT , Service support ,
--- NOTE | 2021-07-04 15:06 | CT_ITS ---
We are attempting to reach an attending provider to discuss findings. An addendum with communication details will be sent when the communication is complete. EXAM: CT ANGIOGRAPHY CHEST WITHOUT AND WITH INTRAVENOUS CONTRAST : 1980 CLINICAL INDICATION: chest pain sob elevated d-dimer TECHNIQUE: Helically acquired angiography images were obtained of the chest without and with intravenous contrast. This CT exam was performed using one or more of the following dose reduction techniques: automated exposure control, adjustment of the mA and/or kV according to patient size, and/or use of iterative reconstruction technique. This report was created using [employer] report generation technology. MIP reconstructed images were created and reviewed. CONTRAST: IV 75ML ISOVUE 370 COMPARISON: None. FINDINGS: PULMONARY ARTERIES: Small filling defects are noted within the upper and lower lobe pulmonary artery branches bilaterally consistent with acute pulmonary embolism. Normal in caliber. AORTA: Unremarkable. Normal in caliber. No evidence of dissection. GREAT VESSELS OF AORTIC ARCH: Unremarkable. Normal in caliber. No evidence of dissection. LUNGS AND PLEURAL SPACES: Small peripheral area of opacification within the anterior basal segment of the left lower lobe raises the possibility of a pulmonary infarct. No mass. No pleural effusion or thickening. No pneumothorax. HEART: No evidence of right heart strain. No pericardial effusion. MEDIASTINUM: Unremarkable. No mediastinal or hilar adenopathy. Esophagus is unremarkable. No hiatal hernia. THYROID: Unremarkable. No thyroid lesions. BONES/JOINTS: Unremarkable. No suspicious lytic or blastic abnormality. KIDNEYS AND URETERS: Staghorn calculus noted within the upper pole of the left kidney. CT/CTA Chest W/WO Contrast IMPRESSION: 1. Acute bilateral pulmonary embolism without evidence of right heart strain. 2. Peripheral left basilar airspace opacification which may represent small pulmonary infarct. 3. Left renal staghorn calculus. Individualized dose optimization techniques were used for this CT. at 1654 Reported and signed by: Darrian Dominguez MD Electronically Signed: Darrian Dominguez MD at 16:53 EDT Tel , Service support ,
[2021-07-04 15:07] LABS: Anion Gap 7 (5-15); BUN 10 mg/dL (7-18); BUN/Creat Ratio 10.2 RATIO (10-20); Chloride 112 mmol/L (98-107); Creatinine, Serum 0.98 mg/dL (0.55-1.02); EST Glomerular Filtration Rate 67 mL/min (>60); Est Glom Filt Rate - Afr Amer 81 mL/min (>60); Estimated Creatinine Clearance 61.56 ml/min; Glucose 91 mg/dL (74-106); Potassium 3.5 mmol/L (3.5-5.1); Sodium Level 139 mmol/L (136-145); Troponin-I HS < 3 pg/mL (3.0-54.0)
[2021-07-04] MEDS: Enoxaparin 120 MG/0.8 ML Syringe 110 MG SC (16:34)
[2021-07-04 17:17] LABS: Probe Check PASS; Specimen Processing Control PASS
== END 2021-07-04 18:04 | disposition home or self-care (01) ==
PROVIDERS: Emergency Provider Emergency Medicine; PCP Family Medicine
DX: R05.1 Acute cough (principal); I26.99 Other pulmonary embolism without acute cor pulmonale; N20.0 Calculus of kidney; Z87.891 Personal history of nicotine dependence; Z79.01 Long term (current) use of anticoagulants
CPT/HCPCS: 71045; 71275; 80048; 84484; 85025; 85379; 87426; 87635; 93005; 99285; J7030; Q9967; U0005; A4216; U0003

== ENCOUNTER 2021-09-26 08:14 | Emergency (ER) | payer MEDICAID, SELFPAY ==
[2021-09-26 08:15] VITALS: BP 119/70; PULSE 90; RESP 16; TEMP 36.1; BMI 30.9
[2021-09-26] MEDS: Mag Hydrox/Al Hydrox/Simeth 30 ML UDC PO (09:05)
--- NOTE | 2021-09-26 09:16 | EDS_ITS ---
HPI HPI - GI History of Present Illness Chief Complaint: Nausea/Vomiting Narrative Narrative: 41-year-old female presenting with GERD symptoms. She states that she has burning in her esophagus and into her stomach. Patient states that this is a longstanding issue which has been worse over the last 2 weeks. She states she tries to avoid trigger food but does occasionally have pasta with red sauce. She did so last evening. She states she drinks 1 cup of coffee per day. She takes occasional Aleve. She states that the burning gets so bad at times she is nauseous. She has Zofran which does help. She is on Protonix 40 mg p.o. daily. She has not had any black or bloody stools and has not vomited up any black or bloody emesis. No urinary complaints. No diarrhea or constipation. No fever, chills, cough. PFSH PFSH Medical History Anxiety HNP (herniated nucleus pulposus), cervical Migraines Home Medications Topamax 75 mg PO/SL DAILY 09/15/20 [History Last Taken Unknown] pantoprazole 40 mg PO DAILY 09/15/20 [History Last Taken Unknown] buspirone 7.5 mg tablet 7.5 mg PO BID 06/18/21 [History Last Taken Unknown] gabapentin 100 mg capsule 100 mg PO BID 06/18/21 [History Last Taken Unknown] apixaban [Eliquis DVT-PE Treat 30D Start] See Rx Instructions .ROUTE .COMPLEX #74 tab 07/04/21 [Rx Last Taken Unknown] sucralfate [Carafate] 10 ml PO BID PRN 10 Days #200 ml 09/26/21 [Rx Last Taken Unknown] Allergy/AdvReac Type Severity Reaction Status Date / Time cat dander Allergy Sneezing, Verified 09/26/21 08:15 itchy eyes clindamycin Allergy Hives Verified 09/26/21 08:15 morphine Allergy Anaphylaxis Verified 09/26/21 08:15 Penicillins [PCN] Allergy Anaphylaxis Verified 09/26/21 08:15 Rabbit Allergy Sneezing, Verified 09/26/21 08:15 itchy eyes adhesive AdvReac Rash Verified 09/26/21 08:15 Surgical History H/O breast biopsy History of surgery Social History household members: spouse, children and other details: [id number] housing: house Smoking Status: Former smoker alcohol intake: current alcohol intake frequency: a few times a week what type of physical activity do you participate in: walking and other details: hike do you feel safe at home: Yes ROS ROS ED Constitutional Constitutional ED: Denies chills or fever(s) ENT ENT ED: Denies rhinorrhea or sore throat Cardiovascular Cardiovascular: Denies chest pain or palpitations Respiratory/Chest Respiratory/Chest: Denies cough or dyspnea Gastrointestinal Gastrointestinal: Reports abdominal pain, nausea and vomiting; Denies constipation or diarrhea Genitourinary Genitourinary ED: Denies dysuria or hematuria Musculoskeletal Musculoskeletal: Denies arthralgias or myalgias Integumentary Denies abscess or rash Neurologic Neurologic: Denies headache(s) or weakness Psychiatric Psychiatric: Denies anxiety or depression EXAM Physical Exam Const Vital Signs: 09/26/21 08:15 Temperature 96.9 F L Temperature Source Temporal Pulse Rate 90 Respiratory Rate 16 Blood Pressure 119/70 Blood Pressure Mean 86 Oxygen Delivery Method Room Air Positive well nourished General Appearance ED: NAD; Negative for pallor HEENT Reports moist mucous membranes normocephalic and atraumatic Eyes PERRL and EOMs intact bilaterally General Eye ED: Negative for pale conjunctiva Neck no lymphadenopathy and supple Cardio regular rate and regular rhythm GI non-tender and non-distended Palpation: soft Neuro Sensorium / Orientation: alert, oriented to person, oriented to place and oriented to time Psych mental status grossly normal and thought process normal Skin General Skin Exam: Negative for jaundice or pallor MDM MDM MDM Narrative Medical decision making narrative: Patient presenting with acid reflux which is an ongoing issue for her. She did eat red sauce last night and she has having a lot of burning today. She is not having chest pain or shortness of breath. She has no viral symptoms. She has had no black or bloody stools or emesis. I discussed with her at length about avoiding trigger foods and NSAIDs. She was given a GI cocktail and felt improved. She is already taking Protonix 40 mg p.o. daily and I did write her prescription for Carafate. I recommended follow- up with Dr. Elena for evaluation, especially because she is on Eliquis for PE. She was amenable to this and discharged home in stable condition. Impression: 1. GERD Discharge Plan Triage Chief Complaint: Nausea/Vomiting ED Provider: Champ Tadeo Dx/Rx/DC Orders Instructions: Gastroesophageal Reflux ... Prescriptions: New sucralfate [Carafate] 100 mg/mL suspension 10 ml PO BID PRN (Reason: acid reflux) 10 Days Qty: 200 RF: 0 No Action buspirone 7.5 mg tablet 7.5 mg PO BID RF: 0 gabapentin 100 mg capsule 100 mg PO BID RF: 0 pantoprazole 40 MG tablet 40 mg PO DAILY RF: 0 Topamax 75 mg PO/SL DAILY RF: 0 Eliquis DVT-PE Treat 30D Start 5 mg (74 tabs) tablets,dose pack See Rx Instructions .ROUTE .COMPLEX Qty: 74 RF: 0 Primary Care Provider: Piyush Robison Referrals: Piyush Robison MD [Primary Care Provider] - Salvador Elena DO [STAFF PHYSICIAN] - As soon as possible Disposition Disposition: Home, Self Care
== END 2021-09-26 09:39 | disposition home or self-care (01) ==
LOC: ED 09:06
PROVIDERS: Emergency Provider Student in an Organized Health Care Education/Training Program; PCP Family Medicine; Visit Provider Student in an Organized Health Care Education/Training Program
DX: K21.9 Gastro-esophageal reflux disease without esophagitis (principal); G43.909 Migraine, unspecified, not intractable, without status migrainosus; F41.9 Anxiety disorder, unspecified; Z87.891 Personal history of nicotine dependence; Z79.899 Other long term (current) drug therapy
CPT/HCPCS: 99283

== ENCOUNTER 2022-07-22 07:13 | Emergency (ER) | payer OTHER, MEDICAID, SELFPAY ==
[2022-07-22 07:14] VITALS: BP 126/61; PULSE 102; RESP 16; TEMP 36.3; O2SAT 100; BMI 28.3
--- NOTE | 2022-07-22 07:35 | EKG12_ITS ---
Test Reason : Blood Pressure : / mmHG Vent. Rate : 063 BPM Atrial Rate : 063 BPM P-R Int : 114 ms QRS Dur : 086 ms QT Int : 422 ms P-R-T Axes : 055 061 038 degrees QTc Int : 431 ms Normal sinus rhythm with sinus arrhythmia Normal ECG Confirmed by THERON BROOKS, CHERYL ([id number]), purchase request editor RILEY COLEMAN ([id number]) on 07/24/2022 8:09:55 AM Referred By: Confirmed By:CHERYL CRUMP MD
--- NOTE | 2022-07-22 07:36 | EDS_ITS ---
HPI History of Present Illness Chief Complaint: Other, Pain/Inj Informant: patient Narrative Narrative: Patient is a 41-year-old female with history of pulmonary emboli, GERD, migraines and anxiety presenting with right-sided chest pain. Patient states for the past 1 to 2 days she has had a cough. Yesterday she developed a constant pain in the right side of her chest that seems to go from her upper chest and then underneath her breast. She states she feels a little short of breath when she first wakes up in the morning but is because she is coughing up phlegm. She feels that she is a little bit more short of breath with exertion. She denies any discomfort like this before. Denies any fever, chills, sick contacts or URI symptoms. Does have a history of pulmonary emboli which was thought to be secondary to control. She is no longer on control, estrogen or Eliquis. Denies any new swelling of her legs, recent immobilization. Is negative for she has history of tubal ligation. [facility] Medical History Anxiety HNP (herniated nucleus pulposus), cervical Migraines Home Medications Topamax 75 mg PO/SL DAILY 09/15/20 [History Last Taken Unknown] pantoprazole 40 mg tablet,delayed release 40 mg PO DAILY 09/15/20 [History Last Taken Unknown] buspirone 7.5 mg tablet 7.5 mg PO BID 06/18/21 [History Last Taken Unknown] gabapentin 100 mg capsule 100 mg PO BID 06/18/21 [History Last Taken Unknown] apixaban 5 mg (74 tabs) tablets in a dose pack (Eliquis DVT-PE Treat 30D Start) See Rx Instructions .Route .COMPLEX #74 tabs 07/04/21 [Rx Last Taken Unknown] sucralfate 100 mg/mL oral suspension (Carafate) 10 ml PO BID PRN acid reflux 10 days #200 mL 09/26/21 [Rx Last Taken Unknown] ferrous sulfate 325 mg (65 mg iron) tablet 325 mg PO TID #90 tabs 07/22/22 [Rx Last Taken Unknown] Allergy/AdvReac Type Severity Reaction Status Date / Time bee venom protein (honey bee) Allergy Anaphylaxis Verified 07/22/22 07:17 [bee sting] cat dander Allergy Sneezing, Verified 07/22/22 07:16 itchy eyes clindamycin Allergy Hives Verified 07/22/22 07:16 morphine Allergy Anaphylaxis Verified 07/22/22 07:16 Penicillins [PCN] Allergy Anaphylaxis Verified 07/22/22 07:16 Rabbit Allergy Sneezing, Verified 07/22/22 07:16 itchy eyes adhesive AdvReac Rash Verified 07/22/22 07:16 Surgical History H/O breast biopsy History of surgery Social History household members: spouse, children and other details: [id number] housing: house Smoking Status: Former smoker alcohol intake: current alcohol intake frequency: a few times a week what type of physical activity do you participate in: walking and other details: hike do you feel safe at home: Yes ROS ROS ED Constitutional Constitutional ED: Denies chills or fever(s) Eyes Eyes: Denies change in vision ENT ENT ED: Denies ear pain, rhinorrhea or sore throat Cardiovascular Cardiovascular: Reports chest pain; Denies palpitations or racing heartbeat Respiratory/Chest Respiratory/Chest: Reports cough and dyspnea on exertion; Denies dyspnea Gastrointestinal Gastrointestinal: Denies abdominal pain, nausea or vomiting Genitourinary Genitourinary ED: Denies dysuria Musculoskeletal Musculoskeletal: Denies arthralgias, back pain or myalgias Integumentary Denies rash Neurologic Neurologic: Reports headache(s); Denies weakness Psychiatric Psychiatric: Denies anxiety or depression Hematologic/Lymphatic Hematologic/Lymphatic: Denies easy bleeding or easy bruising EXAM Physical Exam Const Vital Signs: 07/22/22 07:14 07/22/22 07:49 07/22/22 07:49 Temperature 97.4 F L Temperature Source Temporal Pulse Rate 102 H Respiratory Rate 16 Respiratory Effort Normal Respiratory Pattern Normal Blood Pressure 126/61 H Blood Pressure Mean 82 Pulse Ox 100 Oxygen Delivery Method Room Air Room Air 07/22/22 07:49 07/22/22 07:56 07/22/22 09:51 Temperature Temperature Source Pulse Rate 60 61 Respiratory Rate 14 16 Respiratory Effort Respiratory Pattern Blood Pressure 108/70 124/69 H Blood Pressure Mean 82 87 Pulse Ox 0 100 Oxygen Delivery Method Room Air Room Air Positive well nourished and well developed General Appearance ED: well developed and NAD HEENT Reports TM's clear and moist mucous membranes HEENT Narrative: Normal oropharynx Tympanic Membrane ED: Yes TM's clear Eyes PERRL and EOMs intact bilaterally Neck supple and no JVD Chest Wall inspection of chest normal Chest Narrative: Mild tenderness palpation of the right anterior chest wall and right inferior ribs anterior and mid axillary line. No associated chest wall crepitus Resp normal respiratory effort and clear to auscultation bilaterally Cardio regular rate, regular rhythm and no murmurs GI normal to inspection, nondistended, normoactive bowel sounds and non-tender Back/Spine no CVA tenderness Neuro oriented x3 Neuro Narrative: No focal deficits appreciated Motor Exam: Negative for general weakness Psych mental status grossly normal Mood & Affect: Negative for depressed or anxious Skin no rashes or lesions noted and no wounds MDM MDM MDM Narrative Medical decision making narrative: Patient evaluated for right-sided chest pain. It is reproducible and appears to be more muscle skeletal however she does have a history of PE and is no longer on anticoagulation. She is moderate risk by Wells criteria for pulmonary emboli so we will start with a D-dimer. Will also obtain a troponin and EKG. If D- dimer is normal we will get two-view chest x-ray to rule out pneumonia/pneumothorax. If D-dimer is elevated will order CT PE study. Patient given dose of Toradol and fluids in the ER for symptom control. Patient's labs are significant for a microcytic anemia. She knows she has heavy menstrual cycles and is actually discussed a uterine ablation with her LABORER HOISTING. Her D-dimer is minimally elevated at 0.[address] is ordered which does not show any acute process. Patient's vital signs normalized and she is not hypoxic. I suspect her pain is more muscle skeletal associate with coughing however she would given referral for hematology for her anemia in case she would benefit from iron transfusions. She will be started on oral iron supplements. High since he troponin is 4 and I do not think this is cardiac. Patient discharged home. She is agreeable this plan of care. Lab Data Labs: Laboratory Results - last 24 hr 07/22/22 07/22/22 07/22/22 07:40 07:40 07:40 WBC 6.2 RBC 4.61 Hgb 8.6 L Hct 30.9 L MCV 67.0 L MCH 18.7 L MCHC 27.8 L RDW Std Deviation 47.6 H RDW Coeff of Jhonatan 20.4 H Plt Count 382 MPV 9.5 Immature Gran % (Auto) 0.200 Neut % (Auto) 65.3 Lymph % (Auto) 22.0 [place] % (Auto) 6.0 Eos % (Auto) 5.7 H Baso % (Auto) 0.8 Absolute Neuts (auto) 4.1 Absolute Lymphs (auto) 1.36 Nucleated RBC % 0 Differential Comment SCANNED Anisocytosis 2+ Microcytosis 1+ Macrocytosis 1+ PT 13.1 INR 1.0 D-Dimer Quant (PE/DVT) 0.59 H* Sodium 141 Potassium 3.7 Chloride 111 H Carbon Dioxide 19.0 L Anion Gap 11 BUN 12 Creatinine 0.89 Estim Creat Clear Calc 67.12 Est GFR (MDRD) Af Amer 90 Est GFR (MDRD) Non-Af 75 BUN/Creatinine Ratio 13.5 Glucose 103 Calcium 8.5 Troponin I High Sens 4 Radiography Diagnostic Testing: Clinical Impression(s) from Imaging Studies Chest CTA 07/22/22 08:28 IMPRESSION: Normal CTA chest examination, without a demonstrated pulmonary embolism or arterial dissection. Electronically Signed: Fidel Merlos MD at 9:10 EST , Rhythm Strip Rhythm Strip: Sinus Rhythm Rate: 63 Ectopy: None EKG Initial EKG: Attestation: I personally reviewed and interpreted this EKG as follows: Interpretation: Sinus Rhythm Comments: Normal sinus rhythm rate of 63 with sinus arrhythmia Normal axis Normal intervals Normal ST segments Discharge Plan Triage Chief Complaint: Other, Pain/Inj ED Provider: Miracle Logan Dx/Rx/DC Orders Clinical Impression: Acute chest wall pain, Microcytic anemia Instructions: ED Anemia, Iron-Deficiency (Adult), ED Chest Pain, Noncardiac Prescriptions: New ferrous sulfate 325 mg (65 mg iron) tablet 325 mg PO TID Qty: 90 0RF No Action buspirone 7.5 mg tablet 7.5 mg PO BID gabapentin 100 mg capsule 100 mg PO BID pantoprazole 40 MG tablet 40 mg PO DAILY Topamax 75 mg PO/SL DAILY Eliquis DVT-PE Treat 30D Start 5 mg (74 tabs) tablets,dose pack See Rx Instructions .ROUTE .COMPLEX Qty: 74 0RF Rx Instructions: use as directed sucralfate [Carafate] 100 mg/mL suspension 10 ml PO BID PRN (Reason: acid reflux) 10 Days Qty: 200 0RF Primary Care Provider: Piyush Robison Referrals: Piyush Robison MD [Primary Care Provider] - Leah Haas NP, [employer]PER[employer]OR-[employer] [Med Staff - Adv Practice Prof] - 1-2 Weeks Activity Restrictions/Additional Instructions: Please follow-up with your LABORER HOISTING. Your work-up was remarkable only for microcytic anemia (suspect iron deficiency from heavy vaginal bleeding). You been given referral for hematology/oncology as well. Disposition Disposition: Home, Self Care
[2022-07-22] MEDS: 0.9% Normal Saline 1,000 ML 999 ML IV (07:47)
[2022-07-22 07:48] LABS: Absolute Lymphocyte Count 1.36 X10^3/uL (0.83-4.51); Absolute Neutrophil Count 4.1 X10^3/uL (2.0-7.7); Basophil# 0.05 X10^3/uL; Basophil% 0.8 % (0-1); Eosinophil# 0.35 X10^3/uL; Eosinophils% 5.7 % (0-5); Hematocrit 30.9 % (37-47); Hemoglobin 8.6 g/dL (12.0-15.0); Lymphocyte # 1.36 X10^3/ul (0.83-4.51); Mean Corp Hgb Conc 27.8 g/dL (32-36); Mean Corpuscular Hgb 18.7 pg (27.0-32.0); Mean Platelet Vol. 9.5 fl (6.2-12.0); Monocyte# 0.37 X10^3/uL; NRBC Flagged by Analyzer 0 % (0-5); Neutrophil # 4.05 X10^3/uL (2.7-7.7); Neutrophil % 65.3 % (47-70); POSITIVE MORPHOLOGY YES; Platelet Count 382 K/mm3 (150-450); RBC Distribution Width CV 20.4 % (11.6-14.6); RBC Distribution Width SD 47.6 fl (35.1-43.9); Red Blood Count 4.61 M/mm3 (4.2-5.4); White Blood Count 6.2 K/mm3 (4.4-11.0)
[2022-07-22] MEDS: Ketorolac 15 MG/ML Vial IV (07:48)
[2022-07-22 07:49] VITALS: PULSE 60; RESP 14; O2SAT 0
[2022-07-22 07:56] VITALS: BP 108/70
[2022-07-22 07:56] LABS: Differential Indicated SCAN CRITERIA MET
[2022-07-22 08:02] LABS: Prothrombin Time (Protime)PT. 13.1 SECONDS (11.7-14.9)
[2022-07-22 08:05] LABS: Anion Gap 11 (5-15); BUN 12 mg/dL (7-18); BUN/Creat Ratio 13.5 RATIO (10-20); Calcium,Total 8.5 mg/dL (8.5-10.1); Chloride 111 mmol/L (98-107); Creatinine, Serum 0.89 mg/dL (0.55-1.02); EST Glomerular Filtration Rate 75 mL/min (>60); Est Glom Filt Rate - Afr Amer 90 mL/min (>60); Estimated Creatinine Clearance 67.12 ml/min; Glucose 103 mg/dL (74-106); Potassium 3.7 mmol/L (3.5-5.1); Sodium Level 141 mmol/L (136-145); Troponin-I HS (w/2H Reflex) 4 pg/mL (3.0-54.0)
[2022-07-22 08:22] LABS: D-Dimer Quantitative (DVT/PE) 0.59 FEU/ug/m (0.27-0.49)
--- NOTE | 2022-07-22 08:28 | CT_ITS ---
STUDY: CTA CHEST REASON FOR EXAM: Female, 41 years old. Chest pain, elevated dimer RADIATION DOSAGE (If Supplied By Facility): CTDIvol = ( 6.79 ) mGy, DLP = ( 198.57 ) mGycm TECHNIQUE: The examination was performed with the intravenous administration of IV 100mL Isovue-370. Post-processing of the angiographic images was performed, with multiplanar reformation and 3D reconstruction. Individualized dose optimization techniques were used for this CT. COMPARISON: None. FINDINGS: Normal enhancement of the main pulmonary artery and right and left pulmonary arteries. Normal enhancement of the bilateral peripheral pulmonary arteries. There is no demonstrated pulmonary embolism. Normal thoracic aorta and visualized great vessels. There is no demonstrated aortic dissection. Normal heart and pericardium. Normal mediastinum. Normal hilar regions. Normal visualized trachea and bronchi. The lungs are well expanded. Normal pulmonary parenchyma. Normal pleura. Normal chest wall structures. Normal osseous structures. Stable staghorn calculus in the left kidney. CT/CTA Chest W/WO Contrast IMPRESSION: Normal CTA chest examination, without a demonstrated pulmonary embolism or arterial dissection. Electronically Signed: Fidel Merlos MD at 9:10 EST ,
[2022-07-22 08:45] LABS: Anisocytosis 2+; Differential Comment SCANNED; Macrocytosis 1+; Microcytosis 1+
[2022-07-22 09:44] LABS: Reflex Troponin-HS? (from REC) Y
[2022-07-22 09:51] VITALS: BP 124/69; PULSE 61; RESP 16; O2SAT 100
== END 2022-07-22 10:15 | disposition home or self-care (01) ==
PROVIDERS: Emergency Provider Emergency Medicine; PCP Family Medicine; Visit Provider Emergency Medicine
DX: R07.89 Other chest pain (principal); D50.9 Iron deficiency anemia, unspecified; F41.9 Anxiety disorder, unspecified; Z87.891 Personal history of nicotine dependence
CPT/HCPCS: 71275; 80048; 84484; 85025; 85379; 85610; 93005; 96361; 96374; 99284; J7030; Q9967; A4216

== ENCOUNTER → 2022-08-08 | Outpatient (CLI) | payer OTHER, MEDICAID, SELFPAY ==
[2022-08-08 14:27] LABS: Absolute Neutrophil Count 4.5 X10^3/uL (2.0-7.7); Basophil# 0.03 X10^3/uL; Basophil% 0.4 % (0-1); Eosinophil# 0.33 X10^3/uL; Eosinophils% 4.5 % (0-5); Hematocrit 31.1 % (37-47); Hemoglobin 8.8 g/dL (12.0-15.0); Mean Corp Hgb Conc 28.3 g/dL (32-36); Mean Corpuscular Hgb 18.8 pg (27.0-32.0); Mean Corpuscular Volume 66.6 fL (81-99); Mean Platelet Vol. 9.5 fl (6.2-12.0); Monocyte# 0.57 X10^3/uL; Monocyte% 7.7 % (0-10); NRBC Flagged by Analyzer 0 % (0-5); Neutrophil # 4.46 X10^3/uL (2.7-7.7); Neutrophil % 60.1 % (47-70); POSITIVE MORPHOLOGY YES; Platelet Count 403 K/mm3 (150-450); RBC Distribution Width CV 20.7 % (11.6-14.6); RBC Distribution Width SD 48.7 fl (35.1-43.9); Red Blood Count 4.67 M/mm3 (4.2-5.4); White Blood Count 7.4 K/mm3 (4.4-11.0)
[2022-08-08 14:29] LABS: Differential Indicated SCAN CRITERIA MET
[2022-08-08 15:02] LABS: Anisocytosis 1+; Microcytosis 1+
[2022-08-08 15:07] LABS: hCG Titer Quant., Serum < 1 mIU/mL (1-3)
[2022-08-08 15:12] LABS: Estradiol 96.3 pg/mL; Follicle Stimulating Hormone 3.3 mIU/mL; Luteinizing Hormone 6.3 mIU/mL; T4 Free Direct 1.03 ng/dL (0.76-1.46); Thyroid Stim Hormone (TSH) 1.04 uIU/mL (0.358-3.74)
[2022-08-20 12:08] LABS: Testosterone, Free 0.13 ng/dL (0.10-0.85); Testosterone, Total 10 ng/dL (8-60)
[2022-08-20 15:05] LABS: Testosterone, % Free 1.28 % (0.50-2.80)
== END | disposition home or self-care (01) ==
LOC: WOBLAB 14:09
PROVIDERS: PCP Family Medicine; Visit Provider Obstetrics & Gynecology
DX: N93.9 Abnormal uterine and vaginal bleeding, unspecified (principal)
CPT/HCPCS: 36415; 82670; 83001; 83002; 84402; 84403; 84439; 84443; 84702; 85025

== ENCOUNTER → 2022-08-22 | Outpatient (CLI) | payer OTHER, MEDICAID, SELFPAY ==
--- NOTE | 2022-08-22 14:15 | EMB_PTH ---
PATIENT: LANG CROW LOC: [facility] U#:[id number] AGE/SX: 42/F ROOM: RE08/22/[address]: Dr. Hector Delgado MD : 1980 BED: DIS: 08/22/2022 SPEC #: [id number] RECD: 08/22/22 15:05 STATUS: CAMRON WALKER #: [id number] DISHA: 08/22/22 14:[address]: Hector Delgado DEPT: SURGICAL PATHOLOGY RECD BY: Delores Javed Tissues: Endometrium, NOS Procedures: Surgery Specimen Level IV HEADER OPERATION: Endometrial biopsy PRE-OP DIAGNOSIS: Abnormal uterine bleeding N93.9 TISSUE SUBMITTED: Endometrial biopsy MICROSCOPIC DIAGNOSIS Endometrial biopsy: Proliferative endometrium. ABRAHAM:leydi 08/26/2022 MICROSCOPIC DESCRIPTION Slides are reviewed. GROSS DESCRIPTION Received in fixative is one container labeled with the patient's name and designated endometrial biopsy. The specimen consists of multiple irregular fragments of valdez-pink soft tissue that in aggregate measure 3 x 2.5 x 0.2 cm. The specimen is totally submitted in one cassette. / SJ:rg 08/23/2022 TC:4 CPT: 31732
== END | disposition home or self-care (01) ==
PROVIDERS: PCP Family Medicine; Visit Provider Obstetrics & Gynecology
DX: N93.9 Abnormal uterine and vaginal bleeding, unspecified (principal)
CPT/HCPCS: 88305

== ENCOUNTER 2022-09-23 08:24 | Day surgery (SDC) | payer OTHER, MEDICAID, SELFPAY ==
[2022-09-17 17:00] LABS: Hematocrit 31.2 % (37-47); Hemoglobin 9.2 g/dL (12.0-15.0); Mean Corp Hgb Conc 29.5 g/dL (32-36); Mean Corpuscular Hgb 20.7 pg (27.0-32.0); Mean Corpuscular Volume 70.3 fL (81-99); Mean Platelet Vol. 9.7 fl (6.2-12.0); POSITIVE MORPHOLOGY YES; Platelet Count 482 K/mm3 (150-450); RBC Distribution Width CV 23.1 % (11.6-14.6); RBC Distribution Width SD 58.1 fl (35.1-43.9); Red Blood Count 4.44 M/mm3 (4.2-5.4); White Blood Count 6.4 K/mm3 (4.4-11.0)
[2022-09-17 17:02] LABS: Scan Indicated on CBC? Y/N YES- FLAGS NOTED
[2022-09-17 17:29] LABS: Differential Comment SCANNED
[2022-09-23] VITALS (9 sets, daily range): BP systolic 93–114; BP diastolic 57–71; PULSE 57–86; RESP 16–18; TEMP 36.3–37.1; O2SAT 0–100; BMI 25.4
[2022-09-23] MEDS: Lactated Ringers 1,000 ML 15 ML IV (09:02)
--- NOTE | 2022-09-23 10:18 | PCM.HP.BLA ---
History and Physical Date of Admission: 09/23/22 Chief complaint: Abnormal uterine bleeding History present illness: 42-year-old arrives for hysteroscopy, dilation curettage, endometrial ablation via Jojo. Patient with no medical changes since last seen. All questions answered and consent signed. Obstetric history: G3, P3 with a history of 3 sections Past medical history: Anxiety depression, GERD, hyperlipidemia, migraines Allergies: Clindamycin, morphine, penicillin Past surgical history: , breast lumpectomy Medications: Buspirone, famotidine, gabapentin, Zofran, pantoprazole, propranolol, rosuvastatin, topiramate Social history: Former smoker, denies alcohol or drug use Family history: Denies history DVT or PE Review of systems: Besides above pertinent positives a full review of systems was performed and found to be negative Physical exam: Vitals: Blood pressure 114/58 pulse 86 respiratory rate 16 temperature 98.7 ?F SPO2 100% on room air General: Normal-appearing no acute distress HEENT: Normocephalic/atraumatic no cervical lymphadenopathy Cardiac/respiratory: No use accessory muscles, nonlabored breathing Abdomen: Soft, nontender, nondistended Extremities: No peripheral edema normal peripheral pulses Psych: Normal affect normal demeanor nonpressured speech Assessment plan: 42-year-old for hysteroscopy, dilation curettage, endometrial elation via Jojo for abnormal uterine bleeding. Patient understands risk of the procedure include but are not limited to visceral or vascular injury, prolonged hospitalization, blood loss and need for transfusion, reoperation. Patient state understanding and wished to proceed. All questions were answered and consent was signed
--- NOTE | 2022-09-23 10:20 | EMB_PTH ---
PATIENT: LANG CROW [place] [facility] [place][id number] AGE/SX: 42/F ROOM: RE09/23/[address]: Dr. Hector Delgado MD : 1980 BED: DIS: 09/23/2022 SPEC #: [id number] RECD: 09/23/22 12:01 STATUS: CAMRON REJosi #: [id number] DISHA: 09/23/22 10:[address]: Hector Delgado DEPT: SURGICAL PATHOLOGY RECD BY: Delores Javed ENTERED: 09/23/22 13:25 SP TYPE: ENDOM BX/C CARLOS DR: Dr. Piyush Robison MD Tissues: Endometrium, NOS Procedures: Surgery Specimen Level IV HEADER OPERATION: Hysteroscopy, D & C Jojo PRE-OP DIAGNOSIS: Abnormal uterine bleeding TISSUE SUBMITTED: Endometrial curettings MICROSCOPIC DIAGNOSIS Endometrium, curettings: Disordered proliferative endometrium. AM:leydi 09/24/2022 MICROSCOPIC DESCRIPTION Slides are reviewed. GROSS DESCRIPTION Received in fixative is one container labeled with the patient's name and designated endometrial curettings. The specimen consists of multiple irregular fragments of pink-red soft tissue that in aggregate measure 2.5 x 2.5 x 0.2 cm. The specimen is totally submitted in one cassette. / SJ:rg 09/23/2022 TC:5 CPT: 02769
--- NOTE | 2022-09-23 11:18 | DCINST_ITS ---
Discharge Instructions Diet Discharge Diet: No restrictions Activity Discharge Activity: Return to Normal Activity, May Drive and May Shower May resume sexual activity in: 4-6 weeks Weight Bearing Status: Weight bearing as tolerated Dressing / Incision Call your doctor if your incision/area has: Continuous Slow Oozing and Foul Smelling Discharge Call your doctor if you observe: Fever of 101 or Higher, Shortness of breath and Chest pain Follow Up Care Please Follow Up With: Hector Delgado MD When: 2 weeks postoperatively Test Results: Test results from this visit will be discussed in further detail at your follow- up appointment, if applicable. Discharge Plan Admission Attending Provider: Hector Delgado Primary Care Provider: Piyush Robison Discharge Orders/Prescriptions Prescriptions: No Action buspirone 7.5 mg tablet 7.5 mg PO BID gabapentin 100 mg capsule 100 mg PO BID PRN (Reason: NERVE PAIN) pantoprazole 40 MG tablet 40 mg PO DAILY Topamax 75 mg PO/SL DAILY PRN (Reason: MIGRAINES) ferrous sulfate 325 mg (65 mg iron) tablet 325 mg PO TID Qty: 90 0RF Referrals / Follow Up: Piyush Robison MD [Primary Care Provider] - Disposition Disposition (needs filled in before D/C Order can be placed): Home, Self Care
--- NOTE | 2022-09-23 11:18 | OP.PCM_ITS ---
Report of Operation Date of Procedure: 09/23/22 Pre-Operative Diagnosis: Abnormal uterine bleed Post-Operative Diagnosis: Abnormal uterine bleed Surgery/Procedure Performed:: Hysteroscopy, dilation curettage, endometrial ablation via Jojo Description of Surgical Findings:: Surgeon: Hector Delgado MD Anesthesia: MAC EBL: 5 cc Urine output: 100 cc none IV fluids: 1000 cc Complications: None Specimen: Endometrial curettage Findings: Hysteroscopy revealed no pathology. Post procedure hysteroscopy revealed no pathology. Jojo device set to 5 cm in length. Endometrial ablation for 120 seconds Consent: Patient with abnormal uterine bleeding elects for hysteroscopy, dilation curettage, endometrial ablation via Jojo. Patient understands the risk of the procedure include but are not limited to visceral or vascular injury, prolon ged hospitalization, blood loss need for transfusion, reoperation. Patient states understanding wish to proceed. All questions were answered and consent was signed. Procedure: Patient was brought back to the OR where MAC anesthesia was found to be adequate. Patient was prepared and draped in dorsolithotomy position with yellowfin stirrups. A weighted speculum is placed in the posterior aspect of the vagina and cervical dilators were used to dilate the cervix. Hysteroscope was inserted and above findings were noted. Cavity length was found to be 5 cm. Sharp curettage was performed in all quadrants and sent to pathology. Jojo endometrial ablation device inserted under direct visualization. Safety test passed x2. Endometrial ablation performed for 120 seconds. Jojo device re moved under direct visualization. Post procedure hysteroscope was performed and above findings were noted. Good hemostasis was noted. All counts were correct x2. Patient tolerated procedure well and was brought to recovery in a stable condition.
== END 2022-09-23 13:29 | disposition home or self-care (01) ==
LOC: SDC 08:26 → AC 08:27
PROVIDERS: PCP Family Medicine; Referring Provider Obstetrics & Gynecology; Visit Provider Obstetrics & Gynecology
PROC: 0U5B8ZZ Destruction of Endometrium, Via Natural or Artificial Opening Endoscopic (ICD-10-PCS; CPT 58558; principal; 2022-09-23 10:05)
DX: N93.9 Abnormal uterine and vaginal bleeding, unspecified (principal); E78.5 Hyperlipidemia, unspecified; Z87.891 Personal history of nicotine dependence; K21.9 Gastro-esophageal reflux disease without esophagitis; E61.1 Iron deficiency
CPT/HCPCS: 58563; 00952; 36415; 85027; 86850; 86900; 86901; 88305; J7120; J2405

== ENCOUNTER → 2023-01-07 | Outpatient (CLI) | payer OTHER, SELFPAY ==
[2023-01-16 05:07] LABS: HPV APTIMA, High Risk Positive (Negative); HPV Genotype 16, Aptima Negative (Negative); HPV Genotype 18,45 Aptima Negative (Negative)
== END | disposition home or self-care (01) ==
PROVIDERS: PCP Family Medicine; Visit Provider Obstetrics & Gynecology
DX: Z12.4 Encounter for screening for malignant neoplasm of cervix (principal)
CPT/HCPCS: 87624; 88175; G0145